=== PATIENT | female | born 1945 | race Two or more races ===

== ENCOUNTER 2019-07-04 07:17 | Day surgery (SDC) | payer MEDICARE, BC ==
[2019-07-04] VITALS (8 sets, daily range): BP systolic 138–153; BP diastolic 62–74
[~2019-07-04] VITALS: Ht 154.9 cm; Wt 49.0 kg
[~2019-07-04 07:17] MED LIST: LR 1000ml 1,000 ML IVLG SCH; VITAMIN B COMP1 EAC2 ORAL; VITAMIN D400 INTLU ORAL
[2019-07-04] MEDS ORDERED: fentaNYL 100 mcg/2 mL IV ONE (07:18)
[2019-07-04] MEDS ORDERED: VITAMIN B6 PO (08:15)
--- NOTE | 2019-07-04 08:54 | Short Stay Surgery H&P ---
History of Present Illness History of Present Illness Chief Complaint see office note HPI Kaya Proctor is a 74 year old female who was admitted on for Gerd And Screening Patient History Allergies: Coded Allergies: No Known Allergies (Unverified , 07/04/19) Medication History Scheduled Vitamin D (Vitamin D3), 400 UNITS ORAL DAILY, (Reported) [Vitamin B6], 1 TAB PO DAILY, (Reported) Physical Exam Vital Signs Last Vital Signs Date Time Temp Pulse Resp B/P (MAP) Pulse Ox O2 Delivery O2 Flow Rate FiO2 07/04/19 08:10 Room Air 07/04/19 08:01 97.6 102 20 140/74 99 Plan Attestation Are the patient's medical conditions optimized for surgery? Mac Duckworth MD Jul 04, 2019 08:54
--- NOTE | 2019-07-04 08:54 | Pre-Procedure Note/Attestation ---
Pre-Procedure Note/Attestation Complete Prior to Procedure Planned Procedure: not applicable Procedure Narrative: esophagogastroduodenoscopy and colonoscopy Indications for Procedure Pre-Operative Diagnosis: screening colon, GERD Attestation I attest that I discussed the nature of the procedure; its benefits; risks and complications; and alternatives (and the risks and benefits of such alternatives ), prior to the procedure, with the patient (or the patient's legal front desk representative). I attest that, if there was a reasonable possibility of needing a blood transfusion, the patient (or the patient's legal front desk representative) was given the [facility] standardized written summary, pursuant to the [place] Blood Safety Act ([place] Health and Safety Code # 1645, as amended). I attest that I re-evaluated the patient just prior to the surgery and that there has been no change in the patient's H&P, except as documented below: Mac Duckworth MD Jul 04, 2019 08:54
[2019-07-04] MEDS ORDERED: Propofol 200mg/20ml IV ONE (09:00)
[2019-07-04] MEDS ORDERED: LR 1000ml ONE (09:00)
[2019-07-04] MEDS ORDERED: LR 1000ml 1,000 ML IVLG SCH (09:12)
--- NOTE | 2019-07-04 09:12 | Anethesia Preoperative Eval ---
Anesthesia Pre-op PMH/ROS General Date of Evaluation: Jul 04, 2019 Time of Evaluation: 06:55 Anesthesiologist: Teofilo ASA Score: ASA 2 Mallampati Score Class I : Soft palate, uvula, fauces, pillars visible Class II: Soft palate, uvula, fauces visible Class III: Soft palate, base of uvula visible Class IV: Only hard plate visible Mallampati Classification: Class II Surgeon: Donita Diagnosis: GERD Surgical Procedure: EGD colonoscopy Anesthesia History: none Family History: no anesthesia problems Allergies: Coded Allergies: No Known Allergies (Unverified , 07/04/19) Patient NPO?: Yes Past Medical History Cardiovascular: Reports: HTN; Denies: CAD, NH, valve dz, arrhythmia, other Pulmonary: Denies: asthma, COPD, JAZLYN, other Gastrointestinal/Genitourinary: Reports: GERD; Denies: CRI, ESRD, other Neurologic/Psychiatric: Reports: depression/anxiety; Denies: dementia, CVA, TIA, other Endocrine: Denies: DM, hypothyroidism, steroids, other HEENT: Denies: cataract (L), cataract (R), glaucoma, [place] (L), [place] (R), other Hematology/Immune: Denies: anemia, DVT, bleeding disorder, other Musculoskeletal/Integumentary: Reports: OA PMH Narrative: as above PSxH Narrative: T&A, appendectomy, Anesthesia Pre-op Phys. Exam Physician Exam Last Vital Signs Date Time Temp Pulse Resp B/P (MAP) Pulse Ox O2 Delivery O2 Flow Rate FiO2 07/04/19 08:10 Room Air 07/04/19 08:01 97.6 102 20 140/74 99 Constitutional: NAD Neurologic: CN 2-12 intact Cardiovascular: RRR, no M/R/G Respiratory: CTA Gastrointestinal: S/NT/ND Airway Exam Mallampati Score: Class II MO: full Neck: stiff ROM: limited Teeth: intact Dentures: no upper, no lower Anesthesia Pre-op A/P Labs see chart Studies Pre-op Studies: EKG - ST Risk Assessment & Plan Assessment: ASA 2 Plan: MAC Pre-Antibiotics Given Within 1 Hr of Incision: Casper Cain MD Jul 04, 2019 09:12
[2019-07-04] MEDS ORDERED: fentaNYL 100 mcg/2 mL IV PRN (09:15)
--- NOTE | 2019-07-04 09:35 | Endoscopy Procedure Note ---
Endoscopy Procedure Note General Indication for Procedure: screening colon, GERD Procedures Performed: EGD, colonoscopy Operative Findings/Diagnosis: gastritis, divrticulosis Specimen: yes Pt Tolerated Procedure Well: Yes Estimated Blood Loss: none Anesthesia Anesthesiologist: miguel Anesthesia: MAC Inserted Devices Implant(s) used?: No Quality Quality of Bowel Preparation: Good Did scope reach the cecum?: Yes Was there any complications?: No GI Core Measures 50 yrs or older w/o bx or poly: No 10yrs. F/U recommended: Yes If not recommended, why?: Above average risk 18 years or older w/prev. colo: No Mac Duckworth MD Jul 04, 2019 09:35
--- NOTE | 2019-07-04 10:26 | 48 Hour Post Anesthesia Eval ---
Post Anesthesia Evaluation Procedure: Egd Colonoscopy Date of Evaluation: Jul 04, 2019 Time of Evaluation: 10:25 Blood Pressure Systolic: 142 0: 68 Pulse Rate: 92 Respiratory Rate: 22 Temperature (Fahrenheit): 97.4 O2 Sat by Pulse Oximetry: 99 Airway: patent Nausea: No Vomiting: No Pain Intensity: 1 Hydration Status: adequate Cardiopulmonary Status: stable Mental Status/LOC: patient returned to baseline Follow-up Care/Observations: n/a Post-Anesthesia Complications: none Follow-up care needed: ready to discharge Casper Red MD Jul 04, 2019 10:26
--- NOTE | 2019-07-04 10:28 | Immediate Post-Op Evaluation ---
Immediate Post-Op Evalulation Immediate Post-Op Evalulation Procedure: Egd Colonoscopy Date of Evaluation: Jul 04, 2019 Time of Evaluation: 09:38 IV Fluids: 600 Blood Products: none Estimated Blood Loss: none Urinary Output: none Blood Pressure Systolic: 146 Blood Pressure Diastolic: 74 Pulse Rate: 92 Respiratory Rate: 20 O2 Sat by Pulse Oximetry: 99 Temperature (Fahrenheit): 97.4 Pain Score (1-10): 1 Nausea: No Vomiting: No Complications none Patient Status: reacts, patent, none Hydration Status: adequate Casper Red MD Jul 04, 2019 10:28
--- NOTE | 2019-07-04 15:53 | Cardiology Report ---
APPROVED REPORT EKG Measurement Heart [id number] Sinus tachycardia Right atrial enlargement Borderline ECG
--- NOTE | 2019-07-04 17:00 | Procedure Note ---
DATE OF PROCEDURE: 07/04/2019 SURGEON: Mac Duckworth M.D. PROCEDURE: Upper endoscopy with biopsy and colonoscopy. ANESTHESIA: Per Casper Red M.D. INSTRUMENT: Olympus adult flexible upper endoscope and colonoscope. INDICATION: Screening colonoscopy evaluation, chronic abdominal pain, and chronic GERD. The procedure, risks, benefits, and possible consequences, including hemorrhage, aspiration, perforation and infection, and alternative treatments, were explained to the patient/legal guardian by Dr. Mac Duckworth and the patient/legal guardian understood and accepted these risks. PROCEDURE IN DETAIL: After informed consent was obtained and the patient was adequately sedated, Olympus upper endoscope was advanced from the mouth into the second portion of the duodenum and retroflexion was performed in the stomach. The Z-line was found to be about 35 cm from the incisors. The patient had mild atrophic gastritis. Random biopsy from antrum was obtained to rule out H. pylori infection. In the duodenum, there was mild atrophy of the duodenum. Random biopsy from duodenum was obtained to rule out celiac disease. At this time, the upper endoscope was retrieved and the patient was turned over for colonoscopy. First, rectal exam was performed, which was normal. Then, the scope was advanced from the rectum to the sigmoid. We could not advance the adult scope because there was diverticulosis in that area and some maybe prior abdominal surgeries causing some angulation. We could not pass the adult colonoscope, so we switched to the adult upper scope and we were able to pass the scope all the way to the cecum and to the terminal ileum. Quality of prep was good. The patient had evidence of diverticulosis in the left colon. Otherwise, normal colonoscopy examination. Retroflexion of the rectum showed evidence of internal hemorrhoids. SUMMARY OF FINDINGS: 1. Gastritis, status post biopsy. 2. Duodenitis, status post biopsy. 3. Internal hemorrhoids. 4. Diverticulosis. 5. We used adult upper scope to get through the colon. RECOMMENDATIONS: Follow up biopsy results and treat accordingly. I want to thank Dr. Mac Whitney for this kind referral. Arley CampuzanoD. DR: CHAD JOB#: [id number] CC: Mac Whitney M.D.
== END 2019-07-04 11:10 | disposition home or self-care (01) ==
LOC: GAS 07:17
DX: Z12.11 Encounter for screening for malignant neoplasm of colon (principal); R10.9 Unspecified abdominal pain; K21.9 Gastro-esophageal reflux disease without esophagitis; K29.70 Gastritis, unspecified, without bleeding; K29.80 Duodenitis without bleeding; K64.8 Other hemorrhoids; K57.90 Diverticulosis of intestine, part unspecified, without perforation or abscess without bleeding; R00.0 Tachycardia, unspecified; Z79.899 Other long term (current) drug therapy; I10 Essential (primary) hypertension; F32.9 Major depressive disorder, single episode, unspecified; F41.9 Anxiety disorder, unspecified; M19.90 Unspecified osteoarthritis, unspecified site; Z90.89 Acquired absence of other organs
CPT/HCPCS: 43239; 93005; G0121; J2704; J3010; 94003; 94150